=== PATIENT | female | born 1985 | race Caucasian/White ===

== ENCOUNTER 2018-03-24 12:21 | Emergency (ER) | payer BC ==
[2018-03-24 12:28] VITALS: BP 131/81; PULSE 94; TEMP 98.5; BMI 27.6
--- NOTE | 2018-03-24 12:28 | PDOC ---
History of Present Illness - General Chief Complaint: Back Pain Stated Complaint: back pain Time Seen by Provider: 03/24/18 12:22 History Source: Patient Exam Limitations: No Limitations - History of Present Illness Initial Comments: 32 yo F presents with 1 day history of low back pain, worse with movements of torso, sitting, and lying down. Pain was abrupt onset. No associated dysuria, although she notes that she has been urinating less today. Pain radiates to pelvis. No fever, chills, N/V/D. She is currently ovulating as per home ovulation test (is in process of trying to get ). Past History - Past Medical History Allergies/Adverse Reactions: Allergies Allergy/AdvReac Type Severity Reaction Status Date / Time No Known Allergies Allergy Verified 03/24/18 12:22 Home Medications: Ambulatory Orders Vitamins (Sjr) - 1 tab PO DAILY 11/17/14 Proair Hfa - 2 inhaler PO PRN 11/17/14 Synthroid - 175 mcg PO DAILY 11/17/14 Ibuprofen [Motrin -] 600 mg PO TID PRN #21 tablet 03/24/18 Asthma: Yes Cancer: No Cardiac Disorders: No Diabetes: No HTN: No Seizures: No Thyroid Disease: No - Suicide/Smoking/Psychosocial Hx Smoking History: Former smoker Have you smoked in the past 12 months: No Number of Cigarettes Smoked Daily: 5 If you are a former smoker, when did you quit?: prior to preg. Hx Alcohol Use: No Drug/Substance Use Hx: No Hx Substance Use Treatment: No Review of Systems - Review of Systems Able to Perform ROS?: Yes Comments:: GENERAL/CONSTITUTIONAL: No fever or chills. No weakness. HEAD, EYES, EARS, NOSE AND THROAT: No change in vision. No ear pain or discharge. No sore throat. CARDIOVASCULAR: No chest pain or shortness of breath. RESPIRATORY: No cough, wheezing, or hemoptysis. GASTROINTESTINAL: No nausea, vomiting, diarrhea or constipation. GENITOURINARY: +Dysuria. No frequency. MUSCULOSKELETAL: No joint or muscle swelling or pain. No neck pain. +Low back pain. SKIN: No rash NEUROLOGIC: No headache, vertigo, loss of consciousness, or change in strength/ sensation. ENDOCRINE: No increased thirst. No abnormal weight change. HEMATOLOGIC/LYMPHATIC: No anemia, easy bleeding, or history of blood clots. ALLERGIC/IMMUNOLOGIC: No hives or skin allergy. *Physical Exam - Physical Exam Comments: GENERAL: Awake, alert, and fully oriented, in no acute distress HEAD: No signs of trauma EYES: PERRLA, EOMI, sclera anicteric, conjunctiva clear ENT: Auricles normal inspection, hearing grossly normal, nares patent, oropharynx clear without exudates. Moist mucosa NECK: Normal ROM, supple, no lymphadenopathy, JVD, or masses LUNGS: Breath sounds equal, clear to auscultation bilaterally. No wheezes, and no crackles HEART: Regular rate and rhythm, normal S1 and S2, no murmurs, rubs or gallops ABDOMEN: Soft, nontender, normoactive bowel sounds. No guarding, no rebound. No masses EXTREMITIES: Normal range of motion, no edema. No clubbing or cyanosis. No cords, erythema, or tenderness NEUROLOGICAL: Cranial nerves II through XII grossly intact. Normal speech, normal gait SKIN: Warm, Dry, normal turgor, no rashes or lesions noted. SPINE: No midline tenderness, no stepoffs. No reproducible tenderness. Medical Decision Making - Medical Decision Making 03/24/18 12:59 Pt is currently in process of trying to get , is ovulating at present ( used a home test), so this pain may be mittelschmerz. DDx includes ruptured ovarian cyst, UTI. Nephrolithiasis is unlikely based on presentation. *DC/Admit/Observation/Transfer Diagnosis at time of Disposition: Low back pain Qualifiers: Chronicity: acute Back pain laterality: unspecified Sciatica presence: without sciatica Qualified Code(s): M54.5 - Low back pain - Discharge Dispostion Disposition: HOME Condition at time of disposition: Stable Decision to Admit order: No - Prescriptions Prescriptions: Ibuprofen [Motrin -] 600 mg PO TID PRN #21 tablet PRN Reason: Pain - Referrals - Patient Instructions - Post Discharge Activity
[2018-03-24 13:15] LABS: PH,URINE 8.5 (4.5-8); URINE APPEARANCE Clear; URINE BILIRUBIN Negative (NEGATIVE); URINE COLOR Yellow; URINE GLUCOSE (UA) Negative (NEGATIVE); URINE KETONE Negative (NEGATIVE); URINE LEUK ESTERASE Negative (NEGATIVE); URINE NITRITE Negative (NEGATIVE); URINE PROTEIN 1+ (NEGATIVE); URINE UROBILINOGEN 0.2 (0.2-1.0)
[2018-03-24] MEDS ORDERED: IBUPROFEN 600 MG TABLET (FP) PO ONE ×2 (13:15→13:46)
[2018-03-24 13:30] LABS: EPI CELLS MODERATE /HPF; URINE RBC NEGATIVE /hpf (0-3); URINE WBC 0-2 (0-5)
[2018-03-24 13:31] LABS: URINE MUCUS FEW
== END 2018-03-24 13:48 | disposition home or self-care (01) ==
LOC: FER 12:21
DX: M54.5 Low back pain (principal); Z87.891 Personal history of nicotine dependence; J45.909 Unspecified asthma, uncomplicated
CPT/HCPCS: 81003; 81015; 84703; 99282-25

== ENCOUNTER 2019-08-11 06:08 | Inpatient (IN) | payer BC ==
[~2019-08-11 06:08] MED LIST: ELECTROLYTE-148 SOLN 1,000 ML IV ONE
[2019-08-11 07:10] VITALS: BMI 38.0
[2019-08-11] MEDS ORDERED: CITRIC ACID/SODIUM CITRATE 30 ML UNIT-DOSE CUP PO ONE (08:00)
[2019-08-11] MEDS ORDERED: morphine SULFATE/PF 0.5 MG/ML (2cc Syringe - QUVA) ONE (08:30)
[2019-08-11] MEDS ORDERED: PROPOFOL 20 ML ONE (08:31)
[2019-08-11] MEDS ORDERED: ePHEDrine SULFATE 50 MG/1 ML AMPULE ONE (08:31)
[2019-08-11] MEDS ORDERED: SUCCINYLCHOLINE CHLORIDE 200 MG/10 ML SYRINGE ONE (08:31)
[2019-08-11] MEDS ORDERED: morphine SULFATE/PF 0.5 MG/ML (2cc Syringe - QUVA) EP ONE (08:42)
[2019-08-11] MEDS ORDERED: ONDANSETRON 4 MG/2 ML VIAL IVPUSH PRN (08:42)
--- NOTE | 2019-08-11 08:42 | HP ---
Past Medical History - Primary Care Physician PCP:: Dmitry Xie - Admission Chief Complaint: 33yo P1 with at EGA 39wk and prior shoulder dystocia admitted for primary section. History of Present Illness: Pt came in labor. Prefers primary C/S. 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: Alzheimer's, CVA, Dementia, Migraine, Multiple Sclerosis, Peripheral Neuropathy, Parkinson's, Seizure, Syncope, TIA, Vertigo, Other Cardiovascular: No: AFIB, Aneurysm, Aortic Insufficiency, Aortic Stenosis, CAD, CHF, Deep Vein Thrombosis, HTN, Hyperlipdemia, IL, Mitral Insufficiency, Mitral Stenosis, Murmur, Pulmonary Hypertension, Other Pulmonary: Yes: Asthma (on meds, well controlled w/o exacerbations) Gastrointestinal: Yes: Diverticulosis, GERD, Hiatal Hernia Hepatobiliary: No: Cirrhosis, Cholelithiasis, Cholecystitis, Choledocholithiasis , Hepatitis A, Hepatitis B, Hepatitis C, Other Renal/: No: Renal Failure, Renal Inusuff, BPH, Cancer, Hematuria, Hemodialysis , Neurogenic Bladder, Renal Calculi, UTI, Other Reproductive: No: Ectopic , Endometriosis, Fibroids, PID, Polycystic Ovary Syndrome, Postmenopausal, Other ...: 3 ...Para: 1 ...Term: 1 ...: 0 ...Spon : 0 ...Induced : 0 ...Multiple Gestation: 0 ...LMP: 11/08/18 ... Weeks Gestation by Dates: 39.4 ...EDC by Dates: 08/15/19 ...EDC by Sono: 08/17/19 Heme/Onc: No: Anemia, B12 Deficiency, Bleeding Disorder, Cancer, Current Chemotherapy, Current Radiation Therapy, Hemochromatosis, Hypercoaguable State, Myeloproliferative Synd, Sickle Cell Disease, Sickle Cell Trait, Thrombocytopenia, Other Infectious Disease: No: AIDS, C-Diff, Herpes Zoster, HIV, MRSA, STD's, Tuberculosis, VREF, Other Psych: No: Addictions, Anxiety, Bipolar, Depression, Panic, Psychosis, Schizophrenia, Other Musculoskeletal: No: Bursitis, Chronic low back pain, Hemiparesis, Hemiplegia, Osteoarthritis, Paraplegia, Other Rheumatology: No: Fibromyalgia, Gout, Lupus, Rheumatoid Arthritis, Sarcoidosis, Vasculitis, Other ENT: No: Allergic Rhinitis, Sinusitis, Other Endocrine: Yes: Hypothyroidism Dermatology: No: Basal Cell, Cellulitis, Eczema, Melanoma, Psoriasis, Squamous Cell, Other - Past Surgical History Hx Myomectomy: No Hx Transabdominal Cerclage: No Additional Surgical History: Breast augmentation - Smoking History Smoking history: Never smoked Have you smoked in the past 12 months: No Aproximately how many cigarettes per day: 5 If you are a former smoker, when did you quit?: prior to preg. - Alcohol/Substance Use Hx Alcohol Use: No History of Substance Use: reports: None - Social History Usual Living Arrangement: Yes: With Spouse, With Child ADL: Independent History of Recent Travel: No Home Medications - Allergies Allergies/Adverse Reactions: Allergies Allergy/AdvReac Type Severity Reaction Status Date / Time No Known Allergies Allergy Verified 08/11/19 07:16 - Home Medications Home Medications: Ambulatory Orders Vitamins (Sjr) - 1 tab PO DAILY 11/17/14 Proair Hfa - 2 inhaler PO PRN 11/17/14 Synthroid - 175 mcg PO DAILY 11/17/14 Family Medical History Family Hx Cancer: Mother (non-Hodgkin's lymphoma) Family Hx Cardiac Disorders: Father (afib) Family Hx Diabetes: Father Review of Systems - Review of Systems Constitutional: reports: Other (Labor) Eyes: reports: No Symptoms HENT: reports: No Symptoms Neck: reports: No Symptoms Cardiovascular: reports: No Symptoms Respiratory: reports: No Symptoms Gastrointestinal: reports: No Symptoms Genitourinary: reports: No Symptoms Breasts: reports: No Symptoms Reported Musculoskeletal: reports: No Symptoms Integumentary: reports: No Symptoms Neurological: reports: No Symptoms Endocrine: reports: No Symptoms Hematology/Lymphatic: reports: No Symptoms Psychiatric: reports: No Symptoms Pain Intensity: 8 Physical Exam - Maternity Vital Signs: Vital Signs Temperature 98.7 F 08/11/19 06:41 Pulse Rate 86 08/11/19 06:41 Respiratory Rate 20 08/11/19 06:41 Blood Pressure 147/96 08/11/19 06:41 O2 Sat by Pulse Oximetry (%) Constitutional: Yes: Calm, Moderate Distress, Obese, Other (Labor) Eyes: Yes: WNL, Conjunctiva Clear, EOM Intact HENT: Yes: WNL, Atraumatic, Normocephalic Neck: Yes: WNL, Supple, Trachea Midline Cardiovascular: Yes: WNL, Regular Rate and Rhythm Lungs: Clear to auscultation, Normal air movement Breast(s): Yes: WNL - Abdominal Exam/OB Fundal Height: 41 Number of Fetuses: Single Presentation: Vertex Contractions: Yes Regularity: Regular Intensity: Mod/Strong Monitor Mode: External Heart Rate (range): 140 Heart Rate Location: Midline Category: I Accelerations: Uniform Decelerations: None - Vaginal Exam/OB Vaginal Bleediing: No Speculum Exam: No Dilatation (cm): 4.5 Effacement (%): 80 Amniotic Membrane Status: Bulging Hemorrhage Risk Assessment - Risk Factors Medium Risk Factors: Yes: EFW greater than 4000g High Risk Factors: Yes: None Risk Score: 1 Risk Level: Medium Risk Imaging - Results Ultrasound: Report Reviewed Assessment/Plan 33yo P1 with at EGA 39wk 4d and prior shoulder dystocia admitted for primary section. We discussed the risks and benefits of C/S at length, including but not limited to scarring, pain, bleeding, infection, injury to underlying organs and structures, need for additional surgery to repair/treat any problems or complications, complications/injuries, etc. The pt verbalized her understanding and requested to proceed with surgery. The pt is aware that all surgeries have risks and no guarantees can be provided.
[2019-08-11] MEDS ORDERED: OXYTOCIN 10 UNITS/ML VIAL ONE (09:47)
[2019-08-11] MEDS ORDERED: WITCH HAZEL 50% (TUCKS) 40 PAD/JAR PAD TP PRN (10:18)
[2019-08-11] MEDS ORDERED: BENZOCAINE 20% 57 GM BOTTLE TP PRN (10:18)
[2019-08-11] MEDS ORDERED: SENNOSIDES/DOCUSATE COMBO (SENNA PLUS) TABLET (UD) PO PRN (10:18)
[2019-08-11] MEDS ORDERED: METHYLERGONOVINE MALEATE 0.2 MG/1 ML AMP IM PRN (10:18)
[2019-08-11] MEDS ORDERED: oxyCODONE HCL 5 MG TABLET PO PRN (10:18)
--- NOTE | 2019-08-11 10:26 | OP ---
Operative Note - Note: Operative Date: 08/11/19 Pre-Operative Diagnosis: at EGA 39w4d with macrosomia and prior h/o shoulder dystocia. Operation: Primary LT C/S Findings: Liva baby boy in vtx presentation. No meconium in amniotic fluid. 9-9. Wt 10lbs 14oz. Normal uterus/tubes/ovaries Post-Operative Diagnosis: Same as Pre-op Surgeon: Dmitry Xie Outside Sales Professional: Maryann Kumar Anesthesiologist/HEATER PLANER OPERATOR: Wendy Nieves MD Anesthesia: Spinal Specimens Removed: Placenta Estimated Blood Loss (mls): 700 Drains & Tubes with Location: Cardona catheter Drains, Volume Out (mls): 100 Blood Volume Replaced (mls): 0 Fluid Volume Replaced (mls): 1,200 Operative Report Dictated: Yes
[2019-08-11] MEDS ORDERED: ONDANSETRON 4 MG/2 ML VIAL ONE (10:51)
[2019-08-11] MEDS ORDERED: OXYTOCIN 20 UNITS in 0.9% NS 20 UNIT/1,000 ML INFUS.BAG IV ONE (10:53)
[2019-08-11] MEDS: OXYTOCIN 20 UNITS in 0.9% NS 20 UNIT/1,000 ML INFUS.BAG IV SCH ×2 (11:50→19:15)
[2019-08-11] MEDS ORDERED: PROMETHAZINE HCL 25 MG/1 ML VIAL IVPB ONE (11:57)
--- NOTE | 2019-08-11 12:07 | OP ---
DATE OF OPERATION: 08/11/2019 PREOPERATIVE DIAGNOSIS: at estimated gestational age of 39 weeks and 4 days, macrosomia, previous history of delivery with a shoulder dystocia. POSTOPERATIVE DIAGNOSIS: at estimated gestational age of 39 weeks and 4 days, macrosomia, previous history of delivery with a shoulder dystocia. Delivered. PROCEDURE: Primary low transverse section via Pfannenstiel skin incision. SURGEON: Kurt Xie MD SCRUBBER SYSTEM ATTENDANT: Maryann Kumar MD ANESTHESIOLOGIST: Wendy Nieves MD ANESTHESIA: Spinal. COMPLICATIONS: None. PATHOLOGY: Placenta. INTRAVENOUS FLUIDS: 1200 mL. ESTIMATED BLOOD LOSS: 700 mL. URINE OUTPUT: 100 mL of clear urine at the end of the procedure. FINDINGS: A live baby boy in vertex presentation. No meconium in amniotic fluid. Apgars are 9 and 9. Baby's weight 10 pounds and 14 ounces. Normal uterus, fallopian tubes, and ovaries. DESCRIPTION OF PROCEDURE: The patient was met preoperatively. Risks, benefits, and alternatives of surgery were discussed in details. All questions were answered. The consent form was reviewed and discussed. The patient verbalized her understanding and requested to proceed with the surgery. The patient was brought to the OR with the IV running. She was placed on the surgical table in the sitting position. The spinal anesthesia was achieved without difficulty. The patient was placed in a supine position with a leftward tilt. A Cardona catheter was inserted and left to drain to gravity. The patient was then prepped and draped in the usual sterile fashion. A time-out was conducted as per standard protocol. The surgeons then proceeded with the operation. A Pfannenstiel skin incision was made with the knife approximately 2 cm above the pubic symphysis. The incision was taken down to the level of the fascia. The fascia was incised in the midline. The incision was extended bilaterally using Nicholas scissors. The fascia was dissected away from the rectus muscles superiorly and inferiorly using sharp dissection. The rectus muscles were split in the midline using blunt dissection. The peritoneum was tented up and entered sharply. The peritoneum was incised superiorly and inferiorly. The bladder peritoneum was incised over the lower uterine segment. The bladder was then dissected away from the lower uterine segment. The bladder was reflected downwards. The lower uterine segment was incised transversely, and the incision was extended bilaterally using bandage scissors. The amniotic sac was ruptured, and the baby was delivered from vertex presentation without complications. The baby was crying spontaneously. The umbilical cord was clamped and cut. The baby was handed to the awaiting field training manager. The umbilical cord blood was collected as per patient request. The placenta was then delivered manually and without complications. The uterus was cleared of all clot and debris. The uterine incision was repaired and closed using a 0 Biosyn suture with good hemostasis and approximation. The uterus was noted to be well contracted. The uterine incision was then imbricated using a secondary level of closure using a 0 Biosyn suture. The parietal peritoneum was closed using a 2-0 Vicryl suture. The rectus muscles were approximated using several interrupted 2-0 chromic sutures. The fascia was closed using a 0 Vicryl suture with a running stitch. The Nish fascia and subcutaneous adipose tissues were approximated to eliminate space. The skin was closed using a 4-0 Biosyn suture with a subcutaneous stitch. Sponge, lap, needle counts were correct. The patient was transferred to the recovery room in stable condition and awake. KURT XIE M.D. [id number]
[2019-08-11] MEDS: IBUPROFEN 800 MG/8 ML IJ IVPB PRN (22:46)
--- NOTE | 2019-08-12 07:53 | PN ---
Post Progress Note - Subjective Subjective: Patient without acute complaints. Reports tolerating oral intake without nausea or vomiting. Ambulating without dizziness. Denies fevers or chills. Pain well controlled with oral pain medication. Pumping/breast feeding without issue. Passing flatus, no BM. Post Day: 1 Type of Delivery: Repeat C/S Vital Signs: Vital Signs Temperature 97.9 F 08/12/19 06:00 Pulse Rate 91 H 08/12/19 06:00 Respiratory Rate 16 08/12/19 06:00 Blood Pressure 124/63 08/12/19 06:00 O2 Sat by Pulse Oximetry (%) 100 08/11/19 12:00 Breast Exam: Yes: Soft Uterus: Yes: Fundus Firm Incision: Yes: Dressing dry and intact Abdomen/GI: Yes: Abdomen soft Lochia: Yes: Rubra Lochia, amount: Small Extremities: Yes: Calves non-tender Perineum: Yes: Intact Activity: Ambulating Assessment/Plan 33yo P2 s/p 1 LST c/section POD # 1 doing well, voiding, ambulating VSS, Afebrile will follow h/h Baby boy for circumcision Rh pos not for RhoGam cont. routine care
[2019-08-12] MEDS: IBUPROFEN 800 MG/8 ML IJ IVPB PRN (08:42)
--- NOTE | 2019-08-12 08:53 | PN ---
Progress Note (short form) - Note Progress Note: Anesthesia Postop Check Note: Patient is s/p c section under spinal anesthesia with duramorph intrathecal for post operative pain control. Post op day one. Patient is doing well, no nausea , vomiting, headache, or backache. Pain under control. No adverse anesthetic complications. Dept of anesthesia will sign off care at this time.
[2019-08-12 10:02] LABS: BASO % 0.7 % (0-2.0); EOS % 1.3 % (0-4.5); HEMATOCRIT 31.8 % (32.4-45.2); HEMOGLOBIN 10.6 GM/dL (10.7-15.3); MCH 28.9 pg (25.7-33.7); MCHC 33.4 g/dl (32.0-36.0); MEAN CELL VOLUME 86.8 fl (80-96); MEAN PLT VOLUME 9.2 fl (7.5-11.1); MONO % 4.8 % (3.8-10.2); NEUT % 74.2 % (42.8-82.8); PLATELET COUNT 178 K/MM3 (134-434); RBC 3.66 M/mm3 (3.60-5.2); RDW 14.4 % (11.6-15.6)
[2019-08-12] MEDS ORDERED: BISACODYL 10 MG SUPP.RECT RC PRN (10:18)
[2019-08-12] MEDS: ENOXAPARIN NA (PORCINE) 40 MG/0.4 ML DISP.SYRIN SQ SCH (10:33)
[2019-08-12] MEDS: PRENATAL VITAMINS W/ FOLIC ACID TABLET (FP) PO SCH (10:33)
[2019-08-12] MEDS: IBUPROFEN 600 MG TABLET (FP) PO PRN ×2 (14:56→19:50)
[2019-08-12] MEDS: SIMETHICONE 80 MG TAB.CHEW (FP) PO PRN (14:56)
[2019-08-13] MEDS: IBUPROFEN 600 MG TABLET (FP) PO PRN ×3 (08:10→19:29)
[2019-08-13] MEDS: SIMETHICONE 80 MG TAB.CHEW (FP) PO PRN ×3 (08:10→19:29)
[2019-08-13] MEDS: ENOXAPARIN NA (PORCINE) 40 MG/0.4 ML DISP.SYRIN SQ SCH (11:26)
[2019-08-13] MEDS: PRENATAL VITAMINS W/ FOLIC ACID TABLET (FP) PO SCH (11:26)
--- NOTE | 2019-08-13 14:52 | PN ---
Post Progress Note - Subjective Subjective: Patient without acute complaints. Reports tolerating oral intake without nausea or vomiting. Ambulating without dizziness. Denies fevers or chills. Pain well controlled with oral pain medication. Pumping/breast feeding without issue. Passing flatus. Post Day: 2 Type of Delivery: Repeat C/S Vital Signs: Vital Signs Temperature 97.6 F 08/13/19 10:00 Pulse Rate 94 H 08/13/19 10:00 Respiratory Rate 08/13/19 10:00 Blood Pressure 123/72 08/13/19 10:00 O2 Sat by Pulse Oximetry (%) 100 08/12/19 10:00 Breast Exam: Yes: Soft Uterus: Yes: Fundus Firm, Fundus below umbilicus, Non-tender Incision: Yes: Sutures intact Abdomen/GI: Yes: Abdomen soft, Tolerating PO Lochia: Yes: Rubra Lochia, amount: Small Extremities: Yes: Calves non-tender Perineum: Yes: Intact Activity: Ambulating - Labs Labs: CBC WBC 11.0 K/mm3 (4.0-10.0) H 08/12/19 09:50 RBC 3.66 M/mm3 (3.60-5.2) 08/12/19 09:50 Hgb 10.6 GM/dL (10.7-15.3) L 08/12/19 09:50 Hct 31.8 % (32.4-45.2) L 08/12/19 09:50 MCV 86.8 fl (80-96) 08/12/19 09:50 MCH 28.9 pg (25.7-33.7) 08/12/19 09:50 MCHC 33.4 g/dl (32.0-36.0) 08/12/19 09:50 RDW 14.4 % (11.6-15.6) 08/12/19 09:50 Plt Count 178 K/MM3 (134-434) 08/12/19 09:50 MPV 9.2 fl (7.5-11.1) D 08/12/19 09:50 Absolute Neuts (auto) 8.2 K/mm3 (1.5-8.0) H 08/12/19 09:50 Neutrophils % 74.2 % (42.8-82.8) 08/12/19 09:50 Lymphocytes % 19.0 % (8-40) D 08/12/19 09:50 Monocytes % 4.8 % (3.8-10.2) 08/12/19 09:50 Eosinophils % 1.3 % (0-4.5) 08/12/19 09:50 Basophils % 0.7 % (0-2.0) 08/12/19 09:50 Nucleated RBC % 0 % (0-0) 08/12/19 09:50 Assessment/Plan 33yo P2 s/p primary LT C/S, doing well stable, afebrile. The pt is asymptomatic for s/sxs of anemia. care instructions reviewed. Continue routine postop care. Ambulation encouraged.
--- NOTE | 2019-08-13 15:04 | DS ---
Physical Exam-SERVICE TECH Vital Signs: Vital Signs Temperature 97.6 F 08/13/19 10:00 Pulse Rate 94 H 08/13/19 10:00 Respiratory Rate 20 08/13/19 10:00 Blood Pressure 123/72 08/13/19 10:00 O2 Sat by Pulse Oximetry (%) 100 08/12/19 10:00 Constitutional: Yes: No Distress, Calm, Obese Eyes: Yes: WNL, Conjunctiva Clear, EOM Intact HENT: Yes: WNL, Atraumatic, Normocephalic Neck: Yes: WNL, Supple, Trachea Midline Cardiovascular: Yes: WNL, Regular Rate and Rhythm Respiratory: Yes: WNL, Regular, CTA Bilaterally Gastrointestinal: Yes: WNL, Normal Bowel Sounds, Soft, Abdomen, Obese ...Rectal Exam: Yes: WNL Renal/: Yes: WNL External Genitalia: Yes: Normal Internal Exam Deferred: Yes ....Post : Yes: Uterus firm, Uterus non-tender, Slight lochia rubra Breast(s): Yes: WNL Musculoskeletal: Yes: WNL Extremities: Yes: WNL Edema: No Integumentary: Yes: WNL Wound/Incision: Yes: Clean/Dry, Well Approximated, Sutures Intact, Steri Strips , Open to air Neurological: Yes: WNL, Alert, Oriented ...Motor Strength: WNL Psychiatric: Yes: WNL, Alert, Oriented Labs: CBC, BMP 08/12/19 09:50 Delivery - Delivery Section: Primary, Low Flap Transverse Type of Anesthesia: Spinal Episiotomy/Laceration: None EBL (cc): 700 Delivery, Single - Stages of Labor Date 1st Stage Initiatied: 08/11/19 Time 1st Stage Initiated: 04:00 Date of Delivery: 08/11/19 Time of Delivery: 09:21 Time Placenta Delivered: 09:23 Placenta: Yes: Manual Removal, Normal Configuration - Condition of Salon Stylist/Receiver Setter Present: Yes Name: Skylar Christina Gender: Male Weight: 4.933 kg Position: OA Total Hours ROM (Hrs/Mins): 3mins - 1 Minute Total Score: 9 5 Minutes Total Score: 9 - Feeding Plan Initial Plan: Exclusive throughout hospitalization Benefits of Exclusively reinforced: Yes Discharge Summary Problems reviewed: Yes Reason For Visit: ADMIT FOR C/S macrosopmia at EGA 39w4d Prior shoulder dystocia Maternal obesity Procedures: Principal: Primary LT C/S Hospital Course: Normal postop recover, normal post recovery Plan of Treatment: Ambulation, pain control Condition: Good - Instructions Diet, Activity, Other Instructions: Physical activity Resume your normal everyday activity as tolerated no heavy lifting or exercise until seen by your surgeon. You may walk unlimited jeffy of and climb stairs. You may resume driving the car when you feel safe and comfortable behind the wheel. No sexual activity as instructed. Wound care If you have a bandage, leave it on, and keep dry for 48-72 hours. After that time discard the outer bandage. If they are tapes on the skin under the out of bandage leave them in place. They will peel off in the next 7 to 10 days. Do Not Peel them off. You may shower the day after surgery. If there are tapes present on the skin, you may shower over them. Diet There are no dietary restrictions. Eat healthy, high-fiber foods. Drink 6 to 8 glasses of liquid each day. This will assist in keeping your bowels are regular. Pain management You may take Tylenol or acetaminophen or Ibuprofen (for example, Motrin, Advil etc.) from my pain prescription medication is ordered should be taken as prescribed for moderate to severe pain. Call MD for any of the following: Severe pain not relieved by medication Fever of 101 or higher Excessive bleeding or drainage on dressing Inability to urinate Referrals: Dmitry Xie MD [Staff Physician] - Disposition: HOME - Home Medications Comprehensive Discharge Medication List: Ambulatory Orders Vitamins (Sjr) - 1 tab PO DAILY 11/17/14 Proair Hfa - 2 inhaler PO PRN 11/17/14 Synthroid - 175 mcg PO DAILY 11/17/14 Prescription Drug Monitoring Program (I-STOP) results: I-STOP not reviewed
[2019-08-14] MEDS: IBUPROFEN 600 MG TABLET (FP) PO PRN ×2 (02:04→09:26)
[2019-08-14] MEDS: SIMETHICONE 80 MG TAB.CHEW (FP) PO PRN ×2 (02:05→09:26)
[2019-08-14 07:55] LABS: BASO % 0.5 % (0-2.0); EOS % 6.1 % (0-4.5); HEMATOCRIT 27.8 % (32.4-45.2); HEMOGLOBIN 9.5 GM/dL (10.7-15.3); LYMPH % 31.9 % (8-40); MCH 29.5 pg (25.7-33.7); MCHC 34.2 g/dl (32.0-36.0); MEAN CELL VOLUME 86.1 fl (80-96); MEAN PLT VOLUME 9.3 fl (7.5-11.1); MONO % 5.8 % (3.8-10.2); NEUT % 55.7 % (42.8-82.8); PLATELET COUNT 191 K/MM3 (134-434); RBC 3.23 M/mm3 (3.60-5.2); WHITE BLOOD COUNT 8.1 K/mm3 (4.0-10.0)
--- NOTE | 2019-08-14 09:02 | PN ---
Post Progress Note - Subjective Subjective: Patient without acute complaints. Reports tolerating oral intake without nausea or vomiting. Ambulating without dizziness. Denies fevers or chills. Pain well controlled with oral pain medication. without difficulty. Passing flatus. Post Day: 3 Type of Delivery: Repeat C/S Vital Signs: Vital Signs Temperature 98.2 F 08/13/19 22:00 Pulse Rate 72 08/14/19 02:00 Respiratory Rate 18 08/14/19 02:00 Blood Pressure 132/81 08/14/19 02:00 O2 Sat by Pulse Oximetry (%) 100 08/12/19 10:00 Breast Exam: Yes: Engorged Uterus: Yes: Fundus Firm, Fundus below umbilicus Incision: Yes: Sutures intact. No: Redness, Oozing Abdomen/GI: Yes: Abdomen soft, Tender (mild incisional tenderness), Passing flatus, Tolerating PO. No: Abdominal Distention Lochia: Yes: Rubra Lochia, amount: Small Extremities: Yes: Calves non-tender, Edema (trace) Activity: Ambulating - Labs Labs: CBC WBC 8.1 K/mm3 (4.0-10.0) 08/14/19 07:23 RBC 3.23 M/mm3 (3.60-5.2) L 08/14/19 07:23 Hgb 9.5 GM/dL (10.7-15.3) L 08/14/19 07:23 Hct 27.8 % (32.4-45.2) L 08/14/19 07:23 MCV 86.1 fl (80-96) 08/14/19 07:23 MCH 29.5 pg (25.7-33.7) 08/14/19 07:23 MCHC 34.2 g/dl (32.0-36.0) 08/14/19 07:23 RDW 14.0 % (11.6-15.6) 08/14/19 07:23 Plt Count 191 K/MM3 (134-434) 08/14/19 07:23 MPV 9.3 fl (7.5-11.1) 08/14/19 07:23 Absolute Neuts (auto) 4.5 K/mm3 (1.5-8.0) 08/14/19 07:23 Neutrophils % 55.7 % (42.8-82.8) D 08/14/19 07:23 Lymphocytes % 31.9 % (8-40) D 08/14/19 07:23 Monocytes % 5.8 % (3.8-10.2) 08/14/19 07:23 Eosinophils % 6.1 % (0-4.5) H D 08/14/19 07:23 Basophils % 0.5 % (0-2.0) 08/14/19 07:23 Nucleated RBC % 0 % (0-0) 08/14/19 07:23 Assessment/Plan 33 yo POD # 3 s/p R CD, afebrile, vital signs stable, doing well 1. Patient stable for discharge home today. 2. Patient encouraged to contact MD for: - Severe pain not controlled by oral pain medication - Fevers or chills - Nausea or vomiting, intolerance of oral intake - Incision redness, tenderness or discharge 3. Patient to follow up in office in 1-2 weeks for incision check, 4-6 weeks for visit
[2019-08-14] MEDS: ENOXAPARIN NA (PORCINE) 40 MG/0.4 ML DISP.SYRIN SQ SCH (09:25)
[2019-08-14] MEDS: PRENATAL VITAMINS W/ FOLIC ACID TABLET (FP) PO SCH (09:25)
[2019-08-14 11:55] VITALS: BP 145/80; PULSE 74; TEMP 98.6
--- NOTE | 2019-08-14 16:07 | PATH ---
Surgical Pathology Report Patient Name: HU ROBBINS Med. Rec. 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 Specimen(s) Received PLACENTA Clinical History , suspected LGA, 11/2014-shoulder dystocia, SPAB x1 2018, hypothyroidism, asthma, cervical polyp removed 03/2019 Breast augmentation 2009 Primary large for gestational age and prior shoulder dystocia Final Diagnosis PLACENTA, SECTION: 618 G THIRD TRIMESTER PLACENTA WITH TRIVASCULAR UMBILICAL CORD AND UNREMARKABLE PLACENTAL MEMBRANES. Electronically Signed Angela Caceres M.D. Gross Description The specimen is received fresh labeled placenta and is a 618 gram, 20.0 x 18.0 x 3.0 cm. placenta with attached membranes and umbilical cord. The attached membranes are waldron, translucent with focal opacities and insert marginally. The umbilical cord measures 19 cm. in length and averages 1.2 cm. in diameter. The cord inserts centrally. No true knots or strictures are identified. Cut surface of the umbilical cord reveals 3 vessels. The surface is servin-blue with minimal fibrin deposition and appropriate caliber vessels. The maternal surface is red-brown with focal defects. Sectioning reveals red-brown, spongy parenchyma. No lesions are identified. Manager Steel sections are submitted in three cassettes as follows: 1- membrane rolls and umbilical cord; 2-3- full thickness sections of placenta. /08/13/2019 formerly [facility]/08/13/2019
== END 2019-08-14 11:20 | disposition home or self-care (01) | DRG 788 ==
LOC: JLDR 06:08 → J3W 12:10
PROVIDERS: ADMIT Obstetrics & Gynecology; ATTEND Obstetrics & Gynecology
PROC: 10D00Z1 Extraction of Products of Conception, Low, Open Approach (ICD-10-PCS; principal; 2019-08-11)
DX: O82 Encounter for cesarean delivery without indication (principal); Z3A.39 39 weeks gestation of pregnancy; Z37.0 Single live birth; J45.909 Unspecified asthma, uncomplicated; E03.9 Hypothyroidism, unspecified; Z98.82 Breast implant status; Z87.891 Personal history of nicotine dependence
CPT/HCPCS: 36415; 85025